=== PATIENT | female | born 1940 | race Caucasian/White ===

== ENCOUNTER 2022-10-29 18:37 | Inpatient (IN) | payer OTHER ==
[~2022-10-29] VITALS: Ht 160 cm; Wt 57.7 kg
[2022-10-29] MEDS ORDERED: SERT-206 PO (19:55)
[2022-10-29] MEDS ORDERED: FLUT1AER7 INH (19:55)
[2022-10-29] MEDS ORDERED: HYDR-4611 (19:55)
[2022-10-29] MEDS ORDERED: BUSP15TA60 PO (19:55)
[2022-10-29] MEDS ORDERED: MELO7.5T7 PO (19:55)
[2022-10-29] MEDS ORDERED: SIMV40TA18 PO (19:55)
[2022-10-29] MEDS ORDERED: HYDR25TA5 PO (19:55)
[2022-10-29] MEDS ORDERED: TIOT17SP INH (19:55)
[2022-10-29] MEDS ORDERED: MAGN400T40 PO (19:57)
[2022-10-29] MEDS ORDERED: CHOL20007 PO (19:57)
[2022-10-29] MEDS ORDERED: MORPHINE SULFATE INJ 2 MG/ml SYRG IV PRN (20:15)
[2022-10-29] MEDS ORDERED: NITROGLYCERIN 0.4 MG SL TAB SL PRN (20:15)
[2022-10-29] MEDS ORDERED: ACETAMINOPHEN 325 MG TAB PO PRN (20:15)
[2022-10-29] MEDS: methylPREDNISolone SOD SUCC 40 MG/ML VL IV SCH (21:30)
[2022-10-29] MEDS: HYDROcodone-ACET 5/325MG TAB PO PRN (21:30)
[2022-10-29] MEDS: ATORVASTATIN 20 MG TAB PO SCH (21:31)
[2022-10-29 22:00] VITALS: BP 125/67
[2022-10-29] MEDS ORDERED: METHYLPREDNISOLONE 40 MG IV SCH (22:00)
[2022-10-29] MEDS: ENOXAPARIN SOD 100 MG/1 ML SYRINGE SC SCH (22:00)
[2022-10-29 22:34] LABS: Basophils # (auto) 0 10 ^3/uL (0-0.2); Basophils % (auto) 0.1 % (0.0-2.0); Eosinophils # (auto) 0 10 ^3/uL (0-0.8); Hematocrit 39.2 % (36.0-46.0); Hemoglobin 12.6 g/dL (12.2-16.2); Lymphocytes # (auto) 0.5 10 ^3/uL (0.4-5.4); Lymphocytes % (auto) 5.8 % (10.0-50.0); Mean Corpuscular Hemoglobin 27.7 pg (28.0-32.0); Mean Corpuscular Hgb Conc. 32.2 g/dL (32.0-36.0); Monocytes # (auto) 0.5 10 ^3/uL (0-1.3); Monocytes % (auto) 5.4 % (0.0-12.0); Neutrophils % (auto) 88.7 % (37.0-80.0); Nucleated Red Blood Cells % 0.1 %; Red Blood Cells 4.56 10^6/uL (4.0-5.20); Red Cell Distribution Width 15.4 % (11.8-14.3); White Blood Cell 9.1 10^3/uL (4.4-10.8)
[2022-10-29] MEDS: ALBUTEROL SULF 2.5 MG/0.5ML(0.5%) NEB SOLN NEB SCH (22:35)
[2022-10-30] VITALS (7 sets, daily range): BP systolic 101–125; BP diastolic 47–72
[2022-10-30] MEDS: ALBUTEROL SULF 2.5 MG/0.5ML(0.5%) NEB SOLN NEB SCH ×5 (01:23→22:25)
[2022-10-30] MEDS: HYDROcodone-ACET 5/325MG TAB PO PRN ×4 (03:28→23:26)
[2022-10-30 06:20] LABS: Basophils # (auto) 0 10 ^3/uL (0-0.2); Eosinophils # (auto) 0 10 ^3/uL (0-0.8); Hematocrit 39.4 % (36.0-46.0); Hemoglobin 13.1 g/dL (12.2-16.2); Lymphocytes # (auto) 0.5 10 ^3/uL (0.4-5.4); Mean Corpuscular Hemoglobin 28.4 pg (28.0-32.0); Mean Corpuscular Hgb Conc. 33.2 g/dL (32.0-36.0); Mean Corpuscular Volume 85.5 fL (80.0-100.0); Monocytes # (auto) 0.3 10 ^3/uL (0-1.3); Monocytes % (auto) 5.3 % (0.0-12.0); Neutrophils # (auto) 5.8 10 ^3/uL (1.6-8.6); Neutrophils % (auto) 87.7 % (37.0-80.0); Nucleated Red Blood Cells % 0.1 %; Red Cell Distribution Width 15.5 % (11.8-14.3); White Blood Cell 6.6 10^3/uL (4.4-10.8)
[2022-10-30 06:32] LABS: INR 1.01 (0.9-1.15); Partial Thromboplastin Time 25.9 SEC (24.5-34.5)
[2022-10-30 06:44] LABS: Calcium 9.2 mg/dL (8.5-10.1); Potassium 3.6 mmol/L (3.5-5.1)
[2022-10-30] MEDS ORDERED: SOD CHL 0.9%/ KCL 40MEQ 1,000 ML IV SCH (07:30)
[2022-10-30] MEDS ORDERED: MORPHINE SULFATE INJ 2 MG/ml SYRG IV ONE (10:00)
[2022-10-30] MEDS: methylPREDNISolone SOD SUCC 40 MG/ML VL IV SCH ×2 (10:02→21:16)
[2022-10-30] MEDS: ASPirin 81 mg TAB PO SCH (10:39)
[2022-10-30] MEDS: ENOXAPARIN SOD 100 MG/1 ML SYRINGE SC SCH ×2 (10:39→21:16)
[2022-10-30 13:02] LABS: Urine Bacteria FEW /hpf (None Seen); Urine Blood Negative /uL (Negative); Urine Specific Gravity 1.019 (1.001-1.035); Urine WBC 1 /hpf (0 - 5)
[2022-10-30] MEDS: ATORVASTATIN 20 MG TAB PO SCH (21:15)
[2022-10-31] VITALS (11 sets, daily range): BP systolic 109–137; BP diastolic 61–76
[2022-10-31] MEDS: ALBUTEROL SULF 2.5 MG/0.5ML(0.5%) NEB SOLN NEB SCH ×6 (02:34→21:57)
[2022-10-31 07:11] LABS: Basophils # (auto) 0 10 ^3/uL (0-0.2); Eosinophils # (auto) 0 10 ^3/uL (0-0.8); Hematocrit 40.8 % (36.0-46.0); Hemoglobin 13.2 g/dL (12.2-16.2); Lymphocytes # (auto) 0.5 10 ^3/uL (0.4-5.4); Lymphocytes % (auto) 7.6 % (10.0-50.0); Mean Corpuscular Hgb Conc. 32.2 g/dL (32.0-36.0); Mean Corpuscular Volume 86.8 fL (80.0-100.0); Monocytes # (auto) 0.4 10 ^3/uL (0-1.3); Monocytes % (auto) 5.4 % (0.0-12.0); Neutrophils # (auto) 6.3 10 ^3/uL (1.6-8.6); Nucleated Red Blood Cells % 0.1 %; Red Cell Distribution Width 15.4 % (11.8-14.3); White Blood Cell 7.2 10^3/uL (4.4-10.8)
[2022-10-31] MEDS: methylPREDNISolone SOD SUCC 40 MG/ML VL IV SCH ×2 (08:22→21:57)
[2022-10-31] MEDS: ASPirin 81 mg TAB PO SCH (08:22)
[2022-10-31] MEDS: HYDROcodone-ACET 5/325MG TAB PO PRN ×3 (08:23→22:38)
[2022-10-31] MEDS: ENOXAPARIN SOD 100 MG/1 ML SYRINGE SC SCH ×2 (10:00→21:56)
[2022-10-31 10:42] LABS: Potassium 3.9 mmol/L (3.5-5.1)
[2022-10-31 10:43] LABS: Calcium 9.2 mg/dL (8.5-10.1)
[2022-10-31] MEDS ORDERED: LIDOCAINE 2%HCL (LOCAL ANESTH.) INJ 20ML MDV ONE (15:03)
[2022-10-31] MEDS ORDERED: IODIXANOL 320MG/ML 100ML BTL IV ONE (15:03)
[2022-10-31] MEDS ORDERED: fentaNYL CITRATE 100 MCG/2 ML VL ONE (15:19)
[2022-10-31] MEDS ORDERED: MIDAZOLAM HCL 2MG/2ML 2ml VIAL (1mg/ml) ONE (15:19)
[2022-10-31] MEDS ORDERED: ANGIOMAX 250 MG VIAL IV ONE (15:19)
[2022-10-31] MEDS ORDERED: SODIUM CHL 0.9% 0 ML ONE (15:20)
[2022-10-31] MEDS ORDERED: HEPARIN SODIUM (PORCINE) 5000 UNITS/ML 1ML VIAL ONE (15:21)
[2022-10-31] MEDS ORDERED: VERAPAMIL 2.5MG/ML INJ 2ML VIAL IV ONE (15:21)
[2022-10-31] MEDS ORDERED: METH4PAK PO (19:44)
[2022-10-31] MEDS ORDERED: METO25TA5 PO (19:44)
[2022-10-31] MEDS ORDERED: ASPI-325 PO (19:44)
[2022-10-31] MEDS ORDERED: ALBUAER3 IN (19:44)
[2022-10-31] MEDS: ATORVASTATIN 20 MG TAB PO SCH (21:56)
[2022-11-01] VITALS (8 sets, daily range): BP systolic 127–148; BP diastolic 60–90
[2022-11-01] MEDS: ALBUTEROL SULF 2.5 MG/0.5ML(0.5%) NEB SOLN NEB SCH ×6 (01:20→22:08)
[2022-11-01] MEDS: HYDROcodone-ACET 5/325MG TAB PO PRN ×3 (05:20→20:14)
[2022-11-01 05:52] LABS: Basophils # (auto) 0 10 ^3/uL (0-0.2); Basophils % (auto) 0.1 % (0.0-2.0); Eosinophils # (auto) 0 10 ^3/uL (0-0.8); Hematocrit 39.9 % (36.0-46.0); Hemoglobin 12.9 g/dL (12.2-16.2); Lymphocytes # (auto) 0.5 10 ^3/uL (0.4-5.4); Lymphocytes % (auto) 4.1 % (10.0-50.0); Mean Corpuscular Hemoglobin 27.6 pg (28.0-32.0); Mean Corpuscular Hgb Conc. 32.3 g/dL (32.0-36.0); Mean Corpuscular Volume 85.6 fL (80.0-100.0); Monocytes # (auto) 0.4 10 ^3/uL (0-1.3); Monocytes % (auto) 3.5 % (0.0-12.0); Neutrophils # (auto) 11.4 10 ^3/uL (1.6-8.6); Neutrophils % (auto) 92.3 % (37.0-80.0); Nucleated Red Blood Cells % 0.1 %; Red Blood Cells 4.67 10^6/uL (4.0-5.20); Red Cell Distribution Width 15.5 % (11.8-14.3); White Blood Cell 12.3 10^3/uL (4.4-10.8)
[2022-11-01 06:30] LABS: BUN/Creatinine Ratio 41.9 (10.0-20.0); Calcium 9.3 mg/dL (8.5-10.1); Potassium 4.2 mmol/L (3.5-5.1)
[2022-11-01] MEDS ORDERED: DOXY-448 PO (09:40)
[2022-11-01] MEDS: ASPirin 81 mg TAB PO SCH (10:37)
[2022-11-01] MEDS: ENOXAPARIN SOD 60 MG/0.6 ML SYRINGE SC SCH ×2 (10:38→21:44)
[2022-11-01] MEDS: methylPREDNISolone SOD SUCC 40 MG/ML VL IV SCH ×2 (10:38→21:44)
[2022-11-01] MEDS: DOXYCYCLINE 100MG/250ML 250 ML IV SCH ×2 (10:51→21:43)
[2022-11-01] MEDS: ATORVASTATIN 20 MG TAB PO SCH (21:44)
[2022-11-02] MEDS: ALBUTEROL SULF 2.5 MG/0.5ML(0.5%) NEB SOLN NEB SCH ×6 (02:13→22:36)
[2022-11-02] MEDS: HYDROcodone-ACET 5/325MG TAB PO PRN ×4 (04:13→22:30)
[2022-11-02 05:00] VITALS: BP 122/63
[2022-11-02 09:00] VITALS: BP 127/77
[2022-11-02] MEDS: ENOXAPARIN SOD 60 MG/0.6 ML SYRINGE SC SCH (11:04)
[2022-11-02] MEDS: methylPREDNISolone SOD SUCC 40 MG/ML VL IV SCH ×2 (11:04→21:29)
[2022-11-02] MEDS: ASPirin 81 mg TAB PO SCH (11:04)
[2022-11-02] MEDS: DOXYCYCLINE 100MG/250ML 250 ML IV SCH ×2 (11:05→21:30)
[2022-11-02 13:00] VITALS: BP 120/72
[2022-11-02] MEDS: METOPROLOL TARTRATE 25 MG TAB PO SCH ×2 (14:46→21:30)
[2022-11-02 16:57] VITALS: BP 117/69
[2022-11-02] MEDS: ATORVASTATIN 20 MG TAB PO SCH (21:30)
[2022-11-02 22:00] VITALS: BP 113/52
== END 2022-11-03 00:25 | DRG 280 ==
LOC: TELE-EAST 18:55
PROVIDERS: ADMIT Hospitalist; ATTEND Internal Medicine
PROC: 4A023N7 Measurement of Cardiac Sampling and Pressure, Left Heart, Percutaneous Approach (ICD-10-PCS; principal; 2022-10-31)
PROC: B211YZZ Fluoroscopy of Multiple Coronary Arteries using Other Contrast (ICD-10-PCS; 2022-10-31)
DX: I21.4 Non-ST elevation (NSTEMI) myocardial infarction (principal); J15.9 Unspecified bacterial pneumonia; J96.21 Acute and chronic respiratory failure with hypoxia; J44.0 Chronic obstructive pulmonary disease with (acute) lower respiratory infection; J44.1 Chronic obstructive pulmonary disease with (acute) exacerbation; F41.9 Anxiety disorder, unspecified; E78.5 Hyperlipidemia, unspecified; F32.9 Major depressive disorder, single episode, unspecified; G89.4 Chronic pain syndrome; I12.9 Hypertensive chronic kidney disease with stage 1 through stage 4 chronic kidney disease, or unspecified chronic kidney disease; I25.10 Atherosclerotic heart disease of native coronary artery without angina pectoris; N18.9 Chronic kidney disease, unspecified; Z87.891 Personal history of nicotine dependence; Z88.1 Allergy status to other antibiotic agents; Z99.81 Dependence on supplemental oxygen; Z88.8 Allergy status to other drugs, medicaments and biological substances
CPT/HCPCS: 36415; 71045; 80048; 81001; 84484; 85025; 85610; 85730; 86850; 86900; 86901; 93005; 93458; 94640; 97163; 99152; G0378; J2250; J3490; Q9967